=== PATIENT | female | born 1970 | race Caucasian/White ===

== ENCOUNTER → 2017-10-11 | Outpatient (CLI) | payer OTHER ==
--- NOTE | 2017-10-11 14:46 | RADIOLOGY IMAGING REPORT ---
FACILITY: [facility] - [place] PATIENT NAME: JAYDA RAJAN : [id number] MR: [id number] V: [id number] EXAM DATE: [id number] ORDERING PHYSICIAN: GRETCHEN RINCON TECHNOLOGIST: Lindsey Jorge PROCEDURE:BILATERAL DIGITAL SCREENING MAMMOGRAM WITH CAD ASSISTED INTERPRETATION & 3D TOMOSYNTHESIS COMPARISON:Prior mammograms dated 09/21/15, 03/11/13 INDICATIONS:SCREENING FINDINGS: Moderately dense fibroglandular tissue is seen throughout the breasts. The parenchymal pattern has remained stable allowing for difference in mammographic technique & patient positioning. There is no evidence of malignant appearing mass, malignant appearing calcification or other secondary sign of malignancy in either breast. DIAGNOSTIC CATEGORY 1--NEGATIVE. RECOMMENDATIONS: ROUTINE MAMMOGRAM AND CLINICAL EVALUATION. IMPRESSION: BIRADS 1: Negative. No significant abnormality is seen. Dictated by: Heidi Metcalf M.D. on 10/11/2017 at 9:20 Transcribed by: SADIA on 10/11/2017 at 14:23 Approved by: Heidi Metcalf M.D. on 10/11/2017 at 14:45 [facility]
== END ==
LOC: MAMO 01:11
PROVIDERS: ATTEND Nurse Practitioner Family
DX: Z12.31 Encounter for screening mammogram for malignant neoplasm of breast (principal)
CPT/HCPCS: 77063; 77067

== ENCOUNTER → 2018-09-25 | Outpatient (CLI) | payer OTHER ==
--- NOTE | 2018-09-25 14:23 | RADIOLOGY IMAGING REPORT ---
FACILITY: [facility] - [place] PATIENT NAME: Kassidy Smallwood : 1970 MR: [id number] V: [id number] EXAM DATE: ORDERING PHYSICIAN: BRITTANY BLANC TECHNOLOGIST: Location: [facility] - [place] Patient: Kassidy Smallwood : 1970 Visit/Account:[id number] Date of Sevice: 09/25/2018 EXAMINATION: MRI Brain without intravenous contrast HISTORY: Slurred speech. COMPARISON: None available. TECHNIQUE: Multi-planar, multi-sequence brain MRI was performed without IV contrast administration. FINDINGS: Brain volume: Normal. Sagittal midline structures: Negative. Ventricles: Negative. Acute ischemic changes: None. Hemorrhage: None. Masses / edema: None. Wade-white: Negative. White matter: A few punctate FLAIR hyperintensities in the deep white matter of the frontal lobes. Vessels: Negative. Extra-axial: Negative. Calvarium / scalp: Negative. Skull base: Negative. Visualized sinuses / orbits: Negative. Visualized upper neck: Negative. IMPRESSION: 1. No acute intracranial abnormality or mass. 2. Minimal nonspecific chronic white matter disease in the frontal lobes. The differential diagnosis includes migraine syndromes, demyelinating disease, sequela of prior infection/inflammation/trauma, a nd chronic microvascular ischemia. Report Dictated By: Daniel Beckford MD at 09/25/2018 2:15 PM Report E-Signed By: Daniel Beckford MD at 09/25/2018 2:19 PM WSN:[email or web address]
== END ==
LOC: MRI 00:29
PROVIDERS: ATTEND Psychiatry & Neurology Neurology
DX: R47.81 Slurred speech (principal); K90.0 Celiac disease
CPT/HCPCS: 70551

== ENCOUNTER → 2018-10-03 | Outpatient (CLI) | payer OTHER ==
--- NOTE | 2018-10-03 16:25 | RADIOLOGY IMAGING REPORT ---
FACILITY: [facility] PATIENT NAME: Kassidy Smallwood : 1970 MR: [id number] V: [id number] EXAM DATE: ORDERING PHYSICIAN: GRETCHEN RINCON TECHNOLOGIST: Location: [facility] [place] Patient: Kassidy Smallwood : 1970 Visit/Account:[id number] Date of Sevice: 10/03/2018 PELVIC HISTORY: Bleeding, copper IUD TECHNIQUE: Transabdominal and transvaginal ultrasound pelvis. COMPARISON: None. FINDINGS: Uterus: ; 9.9 cm length x 4.8 cm AP x 5.8 cm transverse. Myometrium: Unremarkable. Endometrium: IUD appears to been good position; double thickness 4.6 mm. Cervix: Grossly negative. Ovaries: Right - not seen Left - not seen Adnexa: Grossly unremarkable. Free pelvic fluid: None. IMPRESSION: IUD appears to been good position within the endometrial canal Neither ovary visualized Report Dictated By: Heidi Metcalf MD at 10/03/2018 4:18 PM Report E-Signed By: Heidi Metcalf MD at 10/03/2018 4:21 PM WSN:[id number]
== END ==
LOC: US 00:58
PROVIDERS: ATTEND Nurse Practitioner Family
DX: N93.8 Other specified abnormal uterine and vaginal bleeding (principal)
CPT/HCPCS: 76856